=== PATIENT | male | born 1965 | race Hispanic/Latino ===

== ENCOUNTER 2020-05-19 22:40 | Emergency (ER) | payer MEDICAID ==
[~2020-05-19] VITALS: Ht 180.3 cm; Wt 116.6 kg
[2020-05-19] MEDS ORDERED: GLUCOPHAGE500 MG PO ×2 (23:01→23:02)
--- NOTE | 2020-05-20 14:43 | EKG ---
[facility] [address] [facility] [place], [place] [address] Signed Normal sinus rhythm Normal ECG No previous ECGs available Confirmed by KAELYN HOLT MD ([id number]) on 05/20/2020 2:43:41 PM Electronically Signed By: KAELYN HOLT MD 05/20/20 1443 PATIENT NAME: WM STREETER Electrocardiogram DATE OF : 63 PHYSICIAN: KAELYN HOLT MD REPORT #: [id number] REPORT IS CONFIDENTIAL AND NOT TO BE RELEASED WITHOUT AUTHORIZATION
== END 2020-05-19 23:53 | disposition home or self-care (01) ==
LOC: ED 22:40
DX: R07.9 Chest pain, unspecified (principal); I10 Essential (primary) hypertension
CPT/HCPCS: 71045; 80053; 83690; 83735; 84484; 85025; 85379; 93005; 93010; 99285-25